=== PATIENT | female | born 1990 | race Caucasian/White ===

== ENCOUNTER → 2018-12-16 09:14 | Outpatient (CLI) | payer SELFPAY | PROVIDERS: Visit Provider Physician Assistant | DX: N30.01 Acute cystitis with hematuria (principal) | CPT/HCPCS: 87077; 87086; 87186 ==

== ENCOUNTER → 2020-04-08 09:55 | Outpatient (CLI) | payer OTHER, SELFPAY ==
[2020-04-08 12:16] LABS: Hepatitis B Surface Antigen NEGATIVE s/c (NEGATIVE)
[2020-04-08 12:34] LABS: HIV 1 & 2 Ab/Ag 4th Gen Combo NEGATIVE (NEGATIVE); Hep C Virus Ab w/Reflex Quant NEGATIVE s/c (NEGATIVE)
[2020-04-09 00:39] LABS: HSV 2 IGG AB < 0.91 index (0.00-0.90); HSV1IGG < 0.91 index (0.00-0.90)
[2020-04-09 04:10] LABS: RPR Screen Non Reactive (Non Reactive)
== END ==
PROVIDERS: Referring Provider Nurse Practitioner Family; Visit Provider Nurse Practitioner Family
DX: N89.8 Other specified noninflammatory disorders of vagina (principal); Z20.2 Contact with and (suspected) exposure to infections with a predominantly sexual mode of transmission
CPT/HCPCS: 36415; 86592; 86695; 86696; 86803; 87210; 87340; 87389

== ENCOUNTER → 2020-06-21 09:07 | Outpatient (CLI) | payer OTHER, SELFPAY ==
[2020-06-21 10:27] LABS: Appearance Urine UA CLEAR; Bilirubin Urine UA NEGATIVE (NEGATIVE); Color Urine UA YELLOW; Glucose Urine UA TRACE g/dL (Negative); Ketones Urine UA NEGATIVE (NEGATIVE); Leukocyte Esterase Urine UA 3+ (NEGATIVE); Nitrite Urine UA POSITIVE (Negative); Occult Blood Urine UA 3+ (Negative); Protein Urine UA TRACE (Negative); Specific Gravity Urine UA <=1.005 (1.000-1.035); pH Urine UA 6.5 (4.5-8.0)
[2020-06-21 10:35] LABS: Bacteria Urine Moderate (10-30); Culture Indicated Urine Specimen Cultured; RBC Urine 1-5/HPF (0-5/HPF); Squamous Epithelial Cell Urine 1-5 /HPF (0-5/HPF); WBC Urine 30-100/HPF (0-5/HPF)
== END ==
PROVIDERS: Referring Provider Family Medicine; Visit Provider Family Medicine
DX: R30.0 Dysuria (principal)
CPT/HCPCS: 81001; 87077; 87086; 87186

== ENCOUNTER → 2021-07-31 13:13 | Outpatient (CLI) | payer OTHER, SELFPAY ==
[2021-07-31 16:12] LABS: COVID19 -Nasal RAPID Negative (Negative)
== END ==
PROVIDERS: PCP Family Medicine; Referring Provider Nurse Practitioner Family; Visit Provider Nurse Practitioner Family
DX: Z20.822 Contact with and (suspected) exposure to COVID-19 (principal); R50.9 Fever, unspecified; R53.83 Other fatigue
CPT/HCPCS: 87635

== ENCOUNTER → 2024-08-21 13:54 | Outpatient (CLI) | payer SELFPAY ==
--- NOTE | 2024-08-21 13:56 | DI.US.S_ITS ---
PROCEDURE: US OB <= 14 WEEKS FETUS INDICATIONS: dating and viability OUTSIDE/PRIOR DATING DATA: Last menstrual period (LMP): 06/15/24 LMP-based estimated date of delivery (ANUSHKA): 03/22/25. First dating scan (date and location): This study. Estimated date of delivery (ANUSHKA) from first dating scan: 03/27/25. TECHNIQUE: Real-time scanning was performed of the fetus and maternal pelvic organs, with image documentation. Endovaginal scanning was also performed to better visualize the fetus and maternal ovaries. COMPARISON: None. FINDINGS: Embryo: Single living intrauterine gestation, crown-rump length 2.1 cm correlates with a gestational age of 8 weeks 6 days, +/-5 days. Heart rate: 165 Maternal organs: Ovaries normal considering gestational status. IMPRESSION: Early 1st trimester gestation, cardiac activity documented. Delivery date is projected to be centered on 03/27/25, +/-5 days. We strive to produce accurate, complete, and clear reports of imaging services. To assist us in improving patient care, this report was composed using standard report templates and voice recognition software. Therefore, it may contain abnormal punctuation, insertions and/or omissions. Occasional wrong-word or sound-alike substitutions may occur. Though we review the report and make efforts to correct it, we do recommend that the report be read carefully in proper context to recognize any text inaccuracies. Dictated by: Anthony Mcneill M.D. on 08/21/2024 at 15:15 Approved by: Anthony Mcneill M.D. on 08/21/2024 at 15:18
== END ==
PROVIDERS: PCP Family Medicine; Referring Provider Family Medicine; Visit Provider Family Medicine
DX: Z34.81 Encounter for supervision of other normal pregnancy, first trimester (principal); Z3A.08 8 weeks gestation of pregnancy
CPT/HCPCS: 76801

== ENCOUNTER → 2024-09-15 17:07 | Outpatient (CLI) | payer OTHER, MEDICAID, SELFPAY ==
[2024-09-15 17:32] LABS: Add Manual Diff / Slide Review NO; Basophils Absolute Auto 0 /uL (0-100); Basophils Percent Auto 0.4 % (0-2); Eosinophils Absolute Auto 200 /uL (0-450); Eosinophils Percent Auto 1.5 % (2-4); Hematocrit 38.2 % (36-46); Lymphocytes Absolute Auto 2500 /uL (1100-4500); Lymphocytes Percent Auto 24.1 % (25-40); Mean Corpuscular HGB Conc 34.1 % (30-36); Mean Corpuscular Hemoglobin 31.3 PG (26-34); Mean Corpuscular Volume 91.7 fL (80-100); Monocytes Absolute Auto 800 /uL (0-900); Monocytes Percent Auto 7.2 % (3-14); Neutrophils Absolute Auto 6900 /uL (1500-7000); Neutrophils Percent Auto 66.8 % (50-75); Platelet Count 353 X10^3/uL (150-400); Red Blood Cell Count 4.16 X10^6/uL (4.0-5.2); White Blood Cell Count 10.4 X10^3/uL (4.5-11.0)
[2024-09-15 17:38] LABS: Appearance Urine UA CLEAR; Bilirubin Urine UA NEGATIVE (NEGATIVE); Color Urine UA YELLOW; Glucose Urine UA NEGATIVE (Negative); Ketones Urine UA NEGATIVE (NEGATIVE); Leukocyte Esterase Urine UA TRACE (NEGATIVE); Nitrite Urine UA NEGATIVE (Negative); Occult Blood Urine UA NEGATIVE (Negative); Protein Urine UA NEGATIVE (Negative); Specific Gravity Urine UA <=1.005 (1.000-1.035); Urobilinogen Urine UA 0.2 E.U./dL (0.2)
[2024-09-15 17:40] LABS: pH Urine UA 6.5 (4.5-8.0)
[2024-09-15 17:54] LABS: Bacteria Urine Occasional (0-1); RBC Urine None Seen (0-5/HPF); Urine Volume 10mL (spun); WBC Urine 5-10/HPF (0-5/HPF)
[2024-09-15 17:55] LABS: Squamous Epithelial Cell Urine 10-30 /HPF (0-5/HPF)
[2024-09-16 05:14] LABS: RPR Screen Non Reactive (Non Reactive)
[2024-09-17 11:36] LABS: Varicella IgG Antibody Reactive (Non Reactive)
[2024-09-17 15:11] LABS: Hepatitis B Surface Antigen NEGATIVE s/c (NEGATIVE); Rubella Antibody IgG 16.3 IU/mL (>15)
[2024-09-17 15:19] LABS: HIV 1 & 2 Ab/Ag 4th Gen Combo NEGATIVE (NEGATIVE); Hep C Virus Ab w/Reflex Quant NEGATIVE s/c (NEGATIVE)
== END ==
PROVIDERS: PCP Family Medicine; Referring Provider Family Medicine; Visit Provider Family Medicine
DX: Z34.80 Encounter for supervision of other normal pregnancy, unspecified trimester (principal); Z3A.12 12 weeks gestation of pregnancy
CPT/HCPCS: 36415; 80055; 81003; 81015; 86787; 86803; 86850; 86900; 86901; 87086; 87389

== ENCOUNTER → 2024-10-05 17:10 | Outpatient (CLI) | payer OTHER, MEDICAID, SELFPAY | LOC: LAB 17:11 | PROVIDERS: PCP Family Medicine; Referring Provider Family Medicine; Visit Provider Family Medicine | DX: Z34.80 Encounter for supervision of other normal pregnancy, unspecified trimester (principal) | CPT/HCPCS: 36415; 82105; 82677; 84702; 86336 ==

== ENCOUNTER → 2024-10-20 11:07 | Outpatient (CLI) | payer OTHER, SELFPAY ==
--- NOTE | 2024-10-20 11:09 | DI.US.S_ITS ---
PROCEDURE: US OB >= 14 WEEKS FETUS INDICATIONS: anatomy OUTSIDE/PRIOR DATING DATA: Last menstrual period (LMP): 06/15/2024 LMP-based estimated date of delivery (ANUSHKA): 03/22/2025. First dating scan (date and location): 08/21/2024. Estimated date of delivery (ANUSHKA) from first dating scan: 03/27/2025 Working ANUSHKA is 03/22/2025. TECHNIQUE: Real-time scanning was performed of the fetus, with image documentation and biometric measurements. COMPARISON: [facility], OB <= 14 WEEKS FETUS, 08/21/2024, 14:07. FINDINGS: General: A single living intrauterine gestation is present. Presentation: Variable. Placenta: Placental position is posterior right lateral , without previa. Amniotic fluid index: 16.7 cm, normal range is 5-24 cm. Single deepest vertical pocket is 4.3 cm. heart rate: 155 beats per minute. Maternal cervical canal: 5.4 cm long. Normal lower limit is 2.5 cm. biometrics: Biparietal diameter: 18 weeks 3 days Head circumference: 17 weeks 3 days Abdominal circumference: 17 weeks 3 days Femur length: 17 weeks 5 days Clinically estimated gestational age: 18 weeks 1 day Composite gestational age from present scan: 17 weeks 5 days Estimated weight and percentile: To enter g, 16th percentile Anatomic survey: Neuro: Ventricles are non-dilated at less than 10 mm. Cisterna magna is normal at 3-11 mm. Cerebellum is normal in size and morphology. Nuchal skin fold: Normal at less than 6 mm between 14-21 weeks gestational age. Face: Nose and lips are normal. Facial profile not well seen. Spine: No evidence for spina bifida. Heart: Suboptimally visualized. Diaphragm: Diaphragm is intact. Stomach: Left-sided stomach is present. Kidneys: No hydronephrosis. Normal is less than 5 mm in 2nd trimester, less than 7 mm in 3rd trimester. Cord: 3-vessel cord has orthotopic insertion. Bladder: Normal in size. Extremities: All 4 extremities identified. IMPRESSION: 1. Single living IUP redemonstrated and interval growth is within normal limits. 2. Facial profile and heart suboptimally visualized; otherwise normal anatomic survey. Short-term follow-up ultrasound recommended. We strive to produce accurate, complete, and clear reports of imaging services. To assist us in improving patient care, this report was composed using standard report templates and voice recognition software. Therefore, it may contain abnormal punctuation, insertions and/or omissions. Occasional wrong-word or sound-alike substitutions may occur. Though we review the report and make efforts to correct it, we do recommend that the report be read carefully in proper context to recognize any text inaccuracies Dictated by: Juan ANDERSON Interpreted: Donnie Fung MD on 10/20/2024 at 14:49 Transcribed by: CAROL on 10/20/2024 at 14:51 Approved by: Geovanna Bacon M.D. on 11/12/2024 at 21:24
== END ==
PROVIDERS: PCP Family Medicine; Referring Provider Family Medicine; Visit Provider Family Medicine
DX: Z34.82 Encounter for supervision of other normal pregnancy, second trimester (principal); Z3A.17 17 weeks gestation of pregnancy
CPT/HCPCS: 76811

== ENCOUNTER → 2024-11-27 15:50 | Outpatient (CLI) | payer OTHER, SELFPAY ==
--- NOTE | 2024-11-27 15:51 | DI.US.S_ITS ---
PROCEDURE: US OB FOLLOW UP INDICATIONS: FOLLOW UP PROFILE AND HEART VIEWS OUTSIDE/PRIOR DATING DATA: Last menstrual period (LMP): 06/15/2024. LMP-based estimated date of delivery (ANUSHKA): 03/22/2025. First dating scan (date and location): 08/21/2024. Estimated date of delivery (ANUSHKA) from first dating scan: 03/27/2025. The calculations are made using the working ANUSHKA of 03/22/2025. TECHNIQUE: Real-time scanning was performed of the fetus, with image documentation and biometric measurements. Endovaginal scanning: No COMPARISON: None. FINDINGS: General: A single living intrauterine gestation is present. Presentation: Vertex. Placenta: Placental position is posterior , without previa. Amniotic fluid index: 15.9 cm, normal range is 5-24 cm. Single deepest vertical pocket is 5.4 cm. heart rate: 155 beats per minute. Maternal cervical canal: 5.3 cm long. Normal lower limit is 2.5 cm. biometrics: Clinically estimated gestational age: 23 week 4 day Anatomic survey: Facial profile and cardiac views within normal limits. Incidental note is made of the cord traversing internal cervical os. IMPRESSION: Single live intrauterine consistent with a 23 week 4 day gestation by dates Facial profile and cardiac views within normal limits. This completes a normal anatomic survey Incidental note is made of the cord traversing the internal os. Attention on follow-up. Approved by: Mart Ellis M.D. on 11/27/2024 at 18:16
== END ==
PROVIDERS: PCP Family Medicine; Referring Provider Advanced Practice Midwife; Visit Provider Advanced Practice Midwife
DX: O28.3 Abnormal ultrasonic finding on antenatal screening of mother (principal); Z3A.23 23 weeks gestation of pregnancy
CPT/HCPCS: 76816

== ENCOUNTER → 2025-01-08 11:06 | Outpatient (CLI) | payer OTHER, SELFPAY ==
--- NOTE | 2025-01-08 11:08 | DI.US.S_ITS ---
PROCEDURE: US OB FOLLOW UP INDICATIONS: F/U UMB CORD AT CX OS. GROWTH AND UMB DOPPLERS. OUTSIDE/PRIOR DATING DATA: Last menstrual period (LMP): 06/15/24. LMP-based estimated date of delivery (ANUSHKA): 03/22/25. First dating scan (date and location): 08/21/24. Estimated date of delivery (ANUSHKA) from first dating scan: 03/27/25. The calculations are made using the most accurate ANUSHKA of 03/27/25, based on 1st trimester OB ultrasound. TECHNIQUE: Real-time scanning was performed of the fetus, with image documentation. Endovaginal scanning: Not needed COMPARISON: [facility], , OB FOLLOW UP, 11/27/2024, 15:57. FINDINGS: A single living intrauterine gestation is present. Presentation: Vertex. Placenta: Placental position is posterior right, without previa. There is no evidence of Vasa previa on the current examination. Amniotic fluid index: 16.3 cm, normal range is 5-24 cm. Single deepest vertical pocket is 5.2 cm. heart rate: 140 beats per minute. Maternal cervical canal: 5.2 cm long. Normal lower limit is 2.5 cm. Clinically estimated gestational age: 28 weeks 6 days, appropriate growth Estimated gestational age from initial scan: 29 weeks 4 days. IMPRESSION: No concern for Vasa previa, no abnormality seen. Appropriate interval growth. Current presentation is vertex. Dictated by: Anthony Mcneill M.D. on 01/08/2025 at 14:05 Approved by: Anthony Mcneill M.D. on 01/08/2025 at 14:09
== END ==
PROVIDERS: PCP Family Medicine; Referring Provider Advanced Practice Midwife; Visit Provider Advanced Practice Midwife
DX: O43.93 Unspecified placental disorder, third trimester (principal); Z3A.28 28 weeks gestation of pregnancy
CPT/HCPCS: 76816

== ENCOUNTER 2025-04-01 17:01 | Outpatient (CLI) | payer OTHER, SELFPAY ==
--- NOTE | 2025-04-01 18:09 | PM.PROC.1 ---
Procedures Date/Time Date of procedure: 04/01/25 Time of procedure: 18:10 General Procedure description: 34YO @ [id number] by sure LMP concordant with early US here for scheduled testing for post dates. Baseline FHR: 140bpm moderate variability Accels present single variable deceleration, resolved with position change with > 20 minutes of reactive tracing after Reactive NST Planned IOL in 2 days.
== END 2025-04-01 18:10 | disposition home or self-care (01) ==
LOC: OB 04-02 12:16
PROVIDERS: PCP Family Medicine; Referring Provider Nurse Practitioner Obstetrics & Gynecology; Visit Provider Nurse Practitioner Obstetrics & Gynecology
DX: O48.0 Post-term pregnancy (principal); Z3A.41 41 weeks gestation of pregnancy
CPT/HCPCS: 59025; G0378; G0379

== ENCOUNTER 2025-04-03 08:02 | Outpatient (CLI) | payer OTHER, SELFPAY | END 2025-04-03 08:47 | disposition home or self-care (01) | LOC: LABOR 08:21 → OB 04-05 06:30 | PROVIDERS: PCP Family Medicine; Referring Provider Nurse Practitioner Obstetrics & Gynecology; Visit Provider Student in an Organized Health Care Education/Training Program | DX: O48.0 Post-term pregnancy (principal); Z3A.41 41 weeks gestation of pregnancy | CPT/HCPCS: G0378; G0379 ==

== ENCOUNTER 2025-04-03 14:18 | Inpatient (IN) | payer OTHER, SELFPAY ==
--- NOTE | 2025-04-03 15:07 | PM.OBHP.1 ---
OB HPI History of Present Condition Chief complaint: Post-date : 3 Para: 0 Estimated Date of Delivery: 03/22/25 Estimated Gestational Age (weeks): 41w5d Narrative: Domonique Guadarrama is a 34 year old female @ 41wks 5 days by LMP concordant with 9wk US presentin for IOL for late term . Cervical ripening via paula balloon was initiated yesterday outpatient. She reported painful contractions last night, which made it hard to sleep and the paula balloon fell out ~0000. +FM. No cramping, VB or LOF. Uncomplicated care with CNMs. Interested in NO2 or pain medication for labor, but hoping to avoid an epidural. Partner, Wilner, is present and supportive. Indications Indication for induction OB: post dates History of Present care: good care, initiated at week # (12), number of visits (12) and pounds weight gain (44) Dating criteria: LMP confirmed by 1st trimester US Ultrasounds: normal 1st trimester US and normal mid trimester US Obstetrical complications: none Medical complications: none Preadmission Labs Blood type: A (+) positive -: Antibody screen: negative, Cystic fibrosis screen: unknown, GBS status: negative, HBsAG: negative, HIV: negative, HSV 1: negative, HSV 2: unknown and RPR/VDLR: negative -: Rubella: immune and Varicella: not immune HCT: 33.7 HCAB: negative Quad screen: Normal 1 hr GTT: 134 Prior (ies) History: Hx # Term Pregnancies: 0 Hx # Pregnancies: 0 Number of Living Children: 0 Multiple births: 0 Spontaneous abortions: 0 Ectopic pregnancies: 0 Elective abortions: 2 Evaluation Evaluation Baseline heart rate: 130 Variability: Moderate (11-25) monitor accelerations: Present Monitor Decelerations: Absent Contraction Frequency (minutes): 4 (4-5) Uterine Contraction Intensity: Mild Status: Category l Dilation: 3-4 cm Effacement: 40-50% station: -2 Position of cervix: posterior Consistency: soft Chong score: 6 Comments: 4/50%/-2 soft posterior cervix membranes intact PFSH Medical History (Updated 04/03/25 @ 15:35 by Sharmin Elise CNM) Anxiety and depression Tinea versicolor Liver laceration (~2007) Bacterial vaginosis Possible exposure to STD Surgical History (Updated 08/18/24 @ 08:08 by Tiara Dasilva RN) History of oral surgery [place] teeth extracted History of tonsillectomy and adenoidectomy History of elective Family History (Updated 08/18/24 @ 08:10 by Tiara Dasilva RN) Father Hyperlipidemia Heart disease Grandfather Lymphoma Sister Anxiety Mother Anxiety Social History marital status: unmarried,living together number of children: 0 household members: significant other lives independently: Yes caregiver/support person: No housing: house pets and animals: Yes (dogs) education level: college (some college) occupational status: employed (sales) current occupational exposures/hazards: No special juaquin needs: No travel history: over 6 months ago seatbelt use: always helmet use: Yes water heater temp set < 120 deg: Yes working smoke detector in home: Yes fire extinguisher in home: Yes carbon monox detector in home: Yes firearms in home: Yes firearms unloaded and locked: Yes do you feel safe at home: Yes Smoking Status: Former smoker Tobacco: How many years used: 8 (off and on, initially smoked, vaped late 20s but quit when she learned of ) second hand exposure: No alcohol intake: former (5-10/week on weekends when not ) substance use type: marijuana and crack/cocaine (early 20s, not recently) during the past year weight has: remained stable well-balanced diet: daily or most days daily servings fruits/ve or more times/day caffeine: Yes (single cup coffee or 1/2 Zipfizz daily) Type(s) of exercise: none Meds Home Medications and Allergies Home Medications ?Medication ?Instructions ?Recorded ?Confirmed ?Type vitamin-ferrous sulfate tab PO 08/18/24 01/25/25 History 27 mg iron-folic acid 0.8 mg tablet sertraline 100 mg tablet 100 mg PO DAILY 04/03/25 04/03/25 History Allergies Allergy/AdvReac Type Severity Reaction Status Date / Time No Known Allergies Allergy Uncoded 01/25/25 15:54 Review of Systems Review of Systems Narrative: She reported that the paula balloon fell out ~0000. ROS: Yes All systems reviewed with the patient and are negative except as otherwise documented OB Exam Vital signs Blood Pressure: 121/76 Pulse Rate: 80 Temperature: 98.4 F Resp Effort & Inspection: normal respiratory effort and able to speak in complete sentences Cardio Rate: regular rate Rhythm: regular rhythm External Female Exam: Yes normal external appearance Speculum Exam - Vagina: Yes normal appearance of the vagina Speculum Exam - Cervix: normal appearance of the cervix Presentation: vertex Objective Labs 04/03/25 15:15 Assessment and Plan Assessment and Plan Assessment and Plan narrative: Assessment: Late term nullipara Cervical ripening indicated No indication for antibiotics Cat I tracing Plan: Admit, routine labor orders. Recommend further cervical ripening with 50 mcg misoprostol (max 6 doses). Domonique agrees. Anticipate onset of active labor. Monitor wellbeing via cEFM. Re-evaluate in 8 hours or sooner, PRN. Time-Based Coding :: [TOTAL MINUTES] spent with patient and on the chart (including review of chart, obtaining history, exam, reviewing outside data, placing orders, documenting exam and treatment plan, and counseling patient) on [DATE].
[2025-04-03 15:32] LABS: Add Manual Diff / Slide Review NO; Basophils Absolute Auto 0 /uL (0-100); Basophils Percent Auto 0.5 % (0-2); Eosinophils Absolute Auto 200 /uL (0-450); Hematocrit 36.6 % (36-46); Hemoglobin 12.6 g/dL (12.0-16.0); Lymphocytes Absolute Auto 1700 /uL (1100-4500); Lymphocytes Percent Auto 21.1 % (25-40); Mean Corpuscular HGB Conc 34.4 % (30-36); Mean Corpuscular Hemoglobin 30.4 PG (26-34); Mean Corpuscular Volume 88.4 fL (80-100); Monocytes Absolute Auto 700 /uL (0-900); Neutrophils Absolute Auto 5300 /uL (1500-7000); Neutrophils Percent Auto 66.4 % (50-75); Platelet Count 287 X10^3/uL (150-400); Red Blood Cell Count 4.14 X10^6/uL (4.0-5.2); Red Cell Distribution Width 12.5 % (11.6-14.8)
[2025-04-03] MEDS: miSOPROStoL 25 MCG TABLET 50 MCG PO ×3 (15:33→23:47)
[2025-04-03 15:55] VITALS: BP 121/76; PULSE 80; TEMP 36.9
[2025-04-03 15:58] VITALS: BP 121/76
--- NOTE | 2025-04-03 22:43 | PM.OBPNLAB ---
Date/Time Date Patient Seen: 04/03/25 Time Patient Seen: 22:44 Pain Control Pain control: tolerating well Comments: oDmonique is breathing through more frequent and stronger contractions. She is interested in discussing options for pain management. Wilner is supportive at her bedside. Vital Signs: BP: 130/80 P: 77 T: 36.5 C Pelvic Exam Dilation (cm): 6 Effacement (%): 60 station: -1 Amniotic membrane status: Intact Contractions Contractions on admission: regular Monitor mode: External Contraction frequency (min): 3 (2-3) Contraction duration (min): 1 Contraction pattern: Regular Contraction intensity: Moderate Status status: Category l Heart Rate Baseline: 130 Monitor Accelerations: Present Monitor Decelerations: Absent Monitor Variability: Moderate Assessment and Plan Assessment: induction ongoing Comments: Assessment: Late term nullipara Increased strength and frequency of contractions Minimal cervical change Cat I FHR Plan: Continue misoprostol for cervical ripening. Counseled on pain management options. Re-assess cervical change in 8 hours or sooner.
[2025-04-04] MEDS: fentaNYL 100 MCG/2 ML INJ IV ×3 (00:20→03:15)
[2025-04-04] MEDS: ONDANSETRON 4 MG/2 ML INJ IV ×3 (00:20→15:48)
[2025-04-04] MEDS: LACTATED RINGERS 1,000 ML 100 ML IV (04:03)
--- NOTE | 2025-04-04 05:25 | PM.AN.REGBLK ---
Regional Block Pre-procedure Procedure: Continuous Lumbar Epidural for L&D Attending OB provider: Sharmin Elise PMH/ROS narrative: , requesting epidural. ROS negative. PSH/Anesthesia history narrative: None Exam narrative: Mall II, good dentition ASA Class: III Labs: Hct 36.6 % (36-46) 04/03/25 15:15 Plt Count 287 X10^3/uL (150-400) 04/03/25 15:15 Medications: Current Medications Generic Name Dose Route Start Last Admin Trade Name Freq PRN Reason Stop Dose Admin Calcium Carbonate 1,000 mg 04/03/25 15:03 Calcium Carbonate 500 Mg Tab PO Q2HR PRN Dyspepsia Carboprost Tromethamine 250 mcg 04/03/25 15:03 Carboprost 250 Mcg/Ml Ampul IM Q90M PRN Bleeding Diphenhydramine HCl 25 mg 04/04/25 05:23 Diphenhydramine 50 Mg/Ml Vial IV Q10M PRN Pruritis Ephedrine Sulfate 10 mg 04/04/25 05:23 Ephedrine 50 Mg/Ml Vial IV Q5M PRN Blood pressure decrease more than 20% of baseline. Fentanyl 100 mcg 04/03/25 15:03 04/04/25 03:15 Fentanyl 100 Mcg/2 Ml Inj IV 100 mcg Q1H PRN Administration Pain, Severe (7-10) Oxytocin/Lactated Ringer's 30 unit in 500 mls @ 200 mls/hr 04/03/25 15:03 Oxytocin Premix IV CONT PRN Bleeding Protocol Tranexamic Acid 1,000 mg/ 100 mls @ 600 mls/hr 04/03/25 15:03 Sodium Chloride IV NOW PRN Bleeding Oxytocin/Lactated Ringer's 30 unit in 500 mls @ 2 mls/hr 04/03/25 15:15 Oxytocin Premix IV TITRATE JAMES Protocol 2 MILLIUNIT/MIN FENT 2MCG/ML BUPIV 0.125% EPI 200 mcg in 100 mls @ 10 mls/hr 04/04/25 05:30 Fentanyl/Bupiv/Ns 2mcg/Ml - 0.125% EPIDURAL CONT JAMES Lidocaine HCl 20 ml 04/03/25 15:03 Lidocaine 1% 20 Ml INJ INTRA-OP PRN Post Delivery Methylergonovine Maleate 0.2 mg 04/03/25 15:03 Methylergonovine 0.2 Mg Tablet PO Q6HR PRN Heavy Bleeding Methylergonovine Maleate 0.2 mg 04/03/25 15:03 Methylergonovine 0.2 Mg/Ml Vial IM NOW PRN Bleeding Mineral Oil 30 ml 04/03/25 15:03 Mineral Oil 30 Ml Udc TOP PRN PRN Version Misoprostol 800 mcg 04/03/25 15:03 Misoprostol 200 Mcg Tablet WV NOW PRN Bleeding Misoprostol 400 mcg 04/03/25 15:03 Misoprostol 200 Mcg Tablet SL NOW PRN Bleeding Misoprostol 50 mcg 04/03/25 15:06 04/03/25 23:47 Misoprostol 25 Mcg Tablet PO 04/04/25 11:16 50 mcg Q4H PRN Administration cervical ripening Nalbuphine HCl 2.5 mg 04/04/25 05:23 Nalbuphine 20 Mg/Ml Ampul IV Q10M PRN Pruritis Naloxone HCl 0.2 mg 04/03/25 15:03 Naloxone 0.4 Mg/Ml Vial IV Q2MIN PRN Opiate Reversal Ondansetron HCl 4 mg 04/03/25 15:03 04/04/25 05:18 Ondansetron 4 Mg/2 Ml Inj IV 4 mg Q4HR PRN Administration Nausea And Vomiting Oxytocin 10 unit 04/03/25 15:03 Oxytocin 10 Unit/Ml Vial IM NOW PRN Bleeding Allergies: Allergies Allergy/AdvReac Type Severity Reaction Status Date / Time No Known Allergies Allergy Uncoded 01/25/25 15:54 Procedure Insertion date: 04/04/25 Insertion time: 04:49 Prep/Local: 1% lidocaine (chlorhex skin prep, dry x 3 min) Interspace: L4-5 Patient position: sitting Needle: 17 gauge Tuohy Loss of resistance with: saline TROY at (cm): 7 Catheter placed at SKIN (cm): 13 Catheter in SPACE (cm): 6 Sensory level: T10 Insertion: No CSF, No Blood, No Paresthesia with insertion, No Paresthesia with injection and No Test dose reaction Initial Medications TEST DOSE time: 05:01 BOLUS DOSE time: 05:13 BOLUS DOSE (mL): 7 BOLUS DOSE med: other (pump solution) Infusion Initial rate (mL/hr): 10 Post-procedure Anesthesia date START: 04/04/25 Anesthesia time START: 04:49 Anesthesia date END: 04/04/25 Anesthesia time END: 18:17 Post-procedure Anesthesia Assessment: Yes CV function: HR/BP stable, Yes Resp function: RR/sat/airway adequate, Yes Post-op hydration adequate, Yes Pain control adequate, Yes Nausea & vomiting absent, Yes Temperature > 36 C, Yes Mental status appropriate and Yes Anesthesia complications
--- NOTE | 2025-04-04 06:31 | PM.OBPNLAB ---
Date/Time Date Patient Seen: 04/04/25 Time Patient Seen: 06:31 Pain Control Pain control: epidural Comments: Contractions became painful overnight. Has noticed scant leaking of fluid since 1800 last night, though none noticed in the last several hours. Domonique received fentanyl (x3 doses) with minimal relief before requesting an epidural. Now resting comfortably after epidural placement. RN held last dose of misoprostol at 0330 (total 3 doses given since admission). VS: BP 119/71, HR 82, T 98.4F Oral Pelvic Exam Dilation (cm): 6 Effacement (%): 90 station: -1 Amniotic membrane status: Ruptured (SROM) Comments: No fluid noticed, but scalp palpated on exam Contractions Monitor mode: External Contraction frequency (min): 3 (2-3) Contraction duration (min): 1 Contraction pattern: Regular Contraction intensity: Moderate Status status: Category ll Heart Rate Baseline: 145 Monitor Accelerations: Present Monitor Decelerations: Early and Variable Monitor Variability: Moderate Assessment and Plan Assessment: active labor (SROM x 12 hours without sx of infection) Comments: Begin pitocin augmentation. Encourage rest and frequent position changes with a peanut ball. Reassess in 4 hours or sooner, PRN.
[2025-04-04] MEDS: OXYTOCIN PREMIX 30 UNIT/500 ML PLAST..BAG IV (06:41)
--- NOTE | 2025-04-04 10:32 | PM.OBPNLAB ---
Date/Time Date Patient Seen: 04/04/25 Time Patient Seen: 10:20 Pain Control Pain control: epidural Comments: Has been comfortable with an epidural in place, able to get some sleep. Feeling increasing rectal pressure on occasion. VS: BP 117/73, HR 95bpm, T 36.6C Pelvic Exam Dilation (cm): 7 Effacement (%): 95 station: -1 Amniotic membrane status: Ruptured (SROM) Comments: No fluid noted Contractions Monitor mode: External Pitocin rate (mU/min): 8 Contraction frequency (min): 3 (2-3) Contraction pattern: Regular Contraction intensity: Moderate Status status: Category ll Heart Rate Baseline: 140 Monitor Accelerations: Present Monitor Decelerations: Early, Late and Variable Monitor Variability: Moderate Comments: baseline variable between 135-150 CNM on unit for recurrent variable FHR decelrations between [id number]. Initially prolonged, lasting 4 minutes with chelsy to 80, poor continuity of tracing. Deceleration resolved with position changes. Assessment and Plan Assessment: active labor and induction ongoing Plan: continuous present management Comments: Continue pitocin titration to adequate contractions as FHR allows. Reassess in 2-4 hours or sooner, PRN.
[2025-04-04] MEDS: FENT 2MCG/ML BUPIV 0.125% EPI 200 MCG/100 ML PLAST..BAG 10 MCG EPIDURAL (11:57)
--- NOTE | 2025-04-04 12:04 | PM.OBPNLAB ---
Date/Time Date Patient Seen: 04/04/25 Time Patient Seen: 12:04 Pain Control Pain control: epidural Comments: Recurrent late decelerations began immediately after last exam. Despite position changes 250mL IVFB and titrating down the pitocin, the recurrent decelerations persisted. Moderate variability throughout with occasional accelerations in the FHR. Pitocin now off and patient resting comfortably in a left tilt position. CNM continuously a bedside and working with RN since 1007. VS: BP 132/79, HR 86bpm, T 98.3F Oral Pelvic Exam Dilation (cm): 7 Effacement (%): 95 station: -1 Amniotic membrane status: Ruptured (SROM) Contractions Monitor mode: External Pitocin rate (mU/min): 0 Contraction frequency (min): 4 (2-4) Contraction duration (min): 1 Contraction pattern: Regular Contraction intensity: Moderate Status status: Category ll Heart Rate Baseline: 140 Monitor Accelerations: Present Monitor Decelerations: Early, Late and Prolonged (x1, chelsy to 80, 4 minutes) Monitor Variability: Moderate Assessment and Plan Assessment: active labor and induction ongoing Plan: continuous present management Comments: Will restart pitocin in 30-60 minutes if FHR allows. Otherwise, will consult OB for NRFHTs. CNM continuously present. Repeat exam, PRN.
--- NOTE | 2025-04-04 15:25 | PM.OBPNLAB ---
Date/Time Date Patient Seen: 04/04/25 Time Patient Seen: 15:25 Pain Control Pain control: epidural Comments: Pitocin was restarted at 1240. Patient remains comfortable with an epidural in place, feeling increasing rectal pressure. VS: BP 130/84, HR 96bpm, T 37.4C Temporal Pelvic Exam Dilation (cm): 9.5 Effacement (%): 100 station: 0 Amniotic membrane status: Ruptured (SROM) Contractions Monitor mode: External Pitocin rate (mU/min): 6 Contraction frequency (min): 2 (2-3) Contraction duration (min): 1 Contraction pattern: Regular Contraction intensity: Moderate Status status: Category ll Heart Rate Baseline: 145 Monitor Accelerations: Present Monitor Decelerations: Absent Monitor Variability: Moderate Assessment and Plan Assessment: active labor (SROM x 22 hrs without sx of infection) Plan: continuous present management Comments: Anticipate second stage soon. Reassess in 1 hour or sooner, PRN.
--- NOTE | 2025-04-04 18:36 | PM.OBPRVD ---
Events: Labor Induction and Meconium Stained Fluid Labor & Delivery Delivery date: 04/04/25 Delivery Time: 18:17 Intrapartal Events: Deceleration Cervical ripening method: per Anaya bulb protocol (then misoprostol x 3 doses) Induction method: per pitocin protocol (max dose 8mu/min) Delivery monitor: external FHT and external uterine Route of delivery: Episiotomy description: None L&D Laceration Description: None Quantitative Blood Loss: 150 Anesthesia Type: Epidural Narrative: Late term IOL progressed well with Anaya balloon, misoprostol (x3 doses) and pitocin (max dose 8mu/min). SROM ~24 hours without sx of infection. Cat II FHR in active labor and during second stage with moderate variability throughout. Domonique was examined and found to be C/C/0 and pushing was initiated at 1637. Strong maternal efforts and continuous coaching led to NSVB of a vigorous baby boy in MARY BETH position. There was no nuchal cord and the shoulders delivered easily. Meconium stained fluid and terminal meconium were noted with delivery of the body. CNM and FOB with hands on at the . was lifted to maternal abdomen for drying and skin to skin with a short cord. Remaining 30 units of pitocin in 500mL LR was increased to 333mL/hr for active management of the third stage. After cessation of pulsation, the cord was double clamped by CNM and cut by FOB. Cord blood sample was collected. Gentle cord traction and a single maternal push led to spontaneous, Schultze delivery of an apparenlty intact placenta, membranes and 3VC. Fundus immediately firm and bleeding scant. Vagina and perineum inspected and intact. QBL 150mL. Both mother and baby stable and skin to skin as I left the room. [place] Baby 1: Infant gender: Male Presentation: vertex Position: Left Occiput Anterior Placenta delivery description: Spontaneous and Normal Configuration Cord Vessel Description: 3 Vessels score (1 min): 9 score (5 min): 9 weight: 3.171 kg Plan for aftercare: Routine care
[2025-04-04] MEDS: LANOLIN OINT 7 GM 1 APPLIC TOP (21:23)
[2025-04-04] MEDS: WITCH HAZEL/GLYCERIN PADS 1 EACH TOP (21:24)
[2025-04-04] MEDS: SERTRALINE 50 MG TABLET 100 MG PO (21:24)
[2025-04-04] MEDS: DERMOPLAST SPRAY 20% 60 ML 1 SPRAY TOP (21:24)
[2025-04-04] MEDS: KETOROLAC 30 MG/ML VIAL IV (21:25)
[2025-04-05] MEDS: IBUPROFEN 600 MG TABLET PO ×2 (02:45→08:59)
[2025-04-05] MEDS: ACETAMINOPHEN 325 MG TABLET 650 MG PO ×2 (06:35)
--- NOTE | 2025-04-05 07:04 | P.DS_ITS ---
Discharge Providers Provider Date of admission: 04/03/25 14:18 Discharge Date: 04/05/25 Primary care physician: Sera Mendez MD Consults: 04/05/25 18:34 Consult to Acid Condenser Routine Comment: Discharge provider: Sharmin Elise CNM Summary Hospital Course Date Patient Seen: 04/05/25 Time Patient Seen: 07:04 Diagnoses: O80 Hospital Course: Iol for Later term progressed well with Anaya balloon, Misoprostol ([id number]), pitocin (max dose 8mu/min) and an epidural for analgesia. NSVB of a healthy baby boy. PPD1: Voiding, ambulating and independently. Tolerating a general diet. Pain is well controlled with PO medication. Vaginal bleeding is light without clots. SHe and her partner Wilner are feeling ready to take their baby boy, Amadou, home today. Peripartum Data Delivery Method: Natural Vaginal Laceration Description: None Episiotomy description: None 1: Gender: Male Disposition of : home Discharge Diagnosis (1) Encounter for full-term uncomplicated delivery: Start Date: 04/04/25 Start Time: 18:17 Status: Acute Problem Details: Routine course Status at Discharge Cognitive/behavioral status at discharge: oriented and calm Functional status at discharge: independent ambulation Overall status at discharge: patient is progressing back to baseline Time Spent with Patient Time attestation: Total time spent providing and/or coordinating discharge services: Time spent: Less than 30 minutes Objective Labs 04/03/25 15:15 Exam Vital Signs (past 8 hours): BP 116/72, HR 71bpm, RR 20, T 98.6F Temporal, SpO2 98% on RA Other: Fundus fir @ U-2, Lochia scant, no clots. Perineum intact, mild edema. Psych Appearance: grossly normal Mental Status: mental status grossly normal Mood: congruent mood Affect: normal affect Discharge Plan Discharge Plan Patient Disposition: Home Discharge orders & Medications Prescriptions: New ibuprofen 600 mg Tablet 600 mg PO Q6HR PRN (Reason: Pain, Mild (1-3)) 14 Days Qty: 60 0RF Continued vit-ferrous sulfat-FA 27 mg iron- 0.8 mg tablet PO sertraline 100 mg tablet 100 mg PO DAILY Follow up/Referrals: Sharmin Elise CNM [[facility], [facility]] Referral Note: Follow-up at 2 weeks and 6 weeks in office Appointments are in your email. Sera Mendez MD [Primary Care Provider, Family Practice] Diet/Activity/Treatments Diet: Diet as Tolerated and Regular Activity: bed rest x 2 week, no heavy lifting x 4 weeks, pelvic rest x 6 weeks Skin/Wound/Dressing Care Report to your healthcare provider any signs of infection, such as:: chills, fever, increased pain, unusual drainage and unusual redness Visit Report/Discharge Packet Instructions: DI for Depression Stand Alone Forms: Patient Portal/API, Stroke Signs & Symptoms Discharge Data Primary Care Provider: Sera Mendez
== END 2025-04-05 15:15 | disposition home or self-care (01) | DRG 807 ==
PROVIDERS: Admitting Provider Nurse Practitioner Obstetrics & Gynecology; PCP Family Medicine; Referring Provider Nurse Practitioner Obstetrics & Gynecology; Visit Provider Nurse Practitioner Obstetrics & Gynecology
DX: O48.0 Post-term pregnancy (principal); Z37.0 Single live birth; Z3A.41 41 weeks gestation of pregnancy; Z67.10 Type A blood, Rh positive; Z28.39 Other underimmunization status; O76 Abnormality in fetal heart rate and rhythm complicating labor and delivery; O63.0 Prolonged first stage (of labor)
CPT/HCPCS: 36415; 59025; 59050; 59200; 85025; 86850; 86900; 86901; G0379; J1885; J2405; J2590; J3010